=== PATIENT | male | born 1965 | race Caucasian/White ===

== ENCOUNTER → 2018-01-27 | Outpatient (CLI) | payer OTHER ==
[~2018-01-27] MED LIST: CLARITIN D TAB1 TAB PO; inhaler
== END ==
LOC: COL.LAB 15:30
DX: Z91.09 Other allergy status, other than to drugs and biological substances (principal)

== ENCOUNTER → 2019-12-27 | Outpatient (CLI) | payer BC | LOC: COL.PUL 13:00 | DX: R06.02 Shortness of breath (principal) | CPT/HCPCS: J7674 ==

== ENCOUNTER → 2020-07-24 | Outpatient (CLI) | payer BC | LOC: COL.VAS 12:28 | DX: R06.02 Shortness of breath (principal) ==

== ENCOUNTER → 2021-03-05 | Outpatient (CLI) | payer BC | LOC: COL.RAD 13:47 | DX: J84.10 Pulmonary fibrosis, unspecified (principal); R04.2 Hemoptysis | CPT/HCPCS: Q9967 ==

== ENCOUNTER 2024-04-06 06:50 | Day surgery (SDC) | payer BC ==
[~2024-04-06] VITALS: Ht 188 cm; Wt 101.2 kg
[~2024-04-06 06:50] MED LIST changes: +LR 1,000 ML IV SCH
[2024-04-06 07:33] VITALS: BP 151/96; PULSE 70; TEMP 98
[2024-04-06] MEDS ORDERED: PROAIR HFA0.09 MG/AC IH (07:39)
[2024-04-06] MEDS ORDERED: BREZTRI AEROS10.7 GM IH (07:41)
[2024-04-06] MEDS ORDERED: Lidocaine PF 1% (10 MG/ML) 5 ML VIAL ONE (08:50)
[2024-04-06] MEDS ORDERED: Lidocaine 2% Viscous 15 ML UNIT DOSE MM ONE (09:05)
[2024-04-06 09:25] VITALS: BP 117/94; PULSE 84; TEMP 97.5
[2024-04-06 09:40] VITALS: BP 116/74; PULSE 80
[2024-04-06 09:44] VITALS: BP 117/94; PULSE 88
--- NOTE | 2024-04-06 09:50 | NUR ---
0925 RETURNS TO ROOM 8 PER CART WITH HOB ELEVATED 60 DEGREES. AWAKE, ALERT. RESP UNLABORED. INTERMITTENT NON PRODUCTIVE COUGH. VITAL SIGNS OBTAINED. DENIES DYSPNEA OR DISCOMFORT. SIGNIFICANT OTHER IN ROOM. CALL LIGHT AT SIDE 0930 HOB ELEVATED 80 DEGREES. TOLERATES PO WATER. DISCHARGE INSTRUCTIONS REVIEWED. PATIENT VERBALIZES UNDERSTANDING. COPY PROVIDED IN DISCHARGE FOLDER 2086 INFREQUENT NON PRODUCTIVE COUGH. RESP UNLABORED. SITS ON EDGE OF CART. DRESSES SELF
== END 2024-04-06 09:50 | disposition home or self-care (01) ==
LOC: SDCO 06:50
DX: R05.3 Chronic cough (principal); J98.4 Other disorders of lung; J38.3 Other diseases of vocal cords; F17.220 Nicotine dependence, chewing tobacco, uncomplicated
CPT/HCPCS: J2704; J7120